=== PATIENT | female | born 1965 | race Hispanic/Latino ===

== ENCOUNTER → 2019-09-22 | Outpatient (CLI) | payer OTHER ==
--- NOTE | 2019-09-22 14:28 | Diagnostic Imaging Report ---
Thyroid Ultrasound Clinical Diagnosis: Hypertension Comparison: None Technique: Multiple images were submitted for interpretation. Multiple longitudinal and transaxial images were performed with a high frequency linear transducer. Report: Right lobe: The right lobe measures 3.8 x 1.6 x 1.5 cm. There are no nodules, cysts, calcifications or masses. Left lobe: The left lobe measures 3.9 x 1.1 x 1.5 cm. There are no nodules, cysts, calcifications or masses. The isthmus measures 3 mm. Homogenous texture. Impression: No significant abnormality on ultrasound examination of the thyroid gland. Signed by: Dami Gayle MD on 09/22/2019 2:25 PM
== END ==
LOC: US 12:40
PROVIDERS: ATTEND Internal Medicine
DX: I10 Essential (primary) hypertension (principal)
CPT/HCPCS: 76536